=== PATIENT | female | born 1945 | race Caucasian/White ===

== ENCOUNTER 2019-01-27 18:04 | Emergency (ER) | payer MEDICARE ==
[~2019-01-27] VITALS: Ht 152.4 cm; Wt 77.1 kg
--- NOTE | 2019-01-27 18:04 | NUR ---
BIBRA W C/O BILAT ELBOW PAIN S/P FALL THIS MORNING. TO ER BED 3, HOOKED TO MONITOR, CHANGED TO GOWN, AWAITING MD LOWERY.
--- NOTE | 2019-01-27 18:15 | NUR ---
DR TAVAREZ AT BEDSIDE
[2019-01-27] MEDS ORDERED: ACETAMINOPHEN ES 500 MG TABLET ONE (18:22)
[2019-01-27] MEDS ORDERED: HYDR-4384 PO (18:25)
[2019-01-27] MEDS ORDERED: AMLO10TA7 PO (18:25)
[2019-01-27] MEDS ORDERED: CLON0.5T12 PO (18:25)
[2019-01-27] MEDS ORDERED: OXYB5TAB11 PO (18:25)
[2019-01-27] MEDS ORDERED: NAPR250T4 PO (18:25)
[2019-01-27] MEDS ORDERED: DONE10TA44 PO (18:25)
[2019-01-27] MEDS ORDERED: DIVA-78 PO (18:25)
[2019-01-27] MEDS ORDERED: CHLO50TA24 PO (18:25)
[2019-01-27] MEDS ORDERED: DOXE50CA4 PO (18:25)
[2019-01-27] MEDS ORDERED: DULO30CA2 PO (18:25)
[2019-01-27] MEDS ORDERED: GABA-532 PO (18:25)
[2019-01-27] MEDS ORDERED: BACL10TA PO (18:25)
[2019-01-27] MEDS ORDERED: predniSONE 20 MG TABLET PO ONE (18:30)
[2019-01-27] MEDS ORDERED: ALBUTEROL FS 2.5 MG/3 ML VIAL.NEB CONTNEB ONE (18:30)
[2019-01-27] MEDS ORDERED: ACETAMINOPHEN ES 500 MG TABLET PO ONE (18:30)
[2019-01-27] MEDS ORDERED: IPRATROPIUM NEB FS 0.5 MG/2.5 ML AMPUL.NEB NEB ONE (18:30)
[2019-01-27] MEDS ORDERED: predniSONE 20 MG TABLET ONE (18:40)
[2019-01-27] MEDS ORDERED: IPRATROPIUM NEB FS 0.5 MG/2.5 ML AMPUL.NEB ONE (18:48)
[2019-01-27] MEDS ORDERED: ALBUTEROL FS 2.5 MG/3 ML VIAL.NEB ONE (18:48)
--- NOTE | 2019-01-27 18:54 | NUR ---
PT WHEELED OUT FOR CT SCAN
--- NOTE | 2019-01-27 19:20 | NUR ---
PT COMFORTABLE IN BED, HOOKED TO MONITOR, VSS, ON BREATHING TREATMENT
--- NOTE | 2019-01-27 19:44 | NUR ---
REPORT GIVEN TO QING ROSS FOR DEJA
--- NOTE | 2019-01-27 20:53 | NUR ---
CALLED [facility] FOR TRANSPORT. ETA 30 MINS. #[phone]
[2019-01-27 21:30] VITALS: BP 116/61
== END 2019-01-27 21:53 | disposition home or self-care (01) ==
LOC: ER 18:12
DX: S20.222A Contusion of left back wall of thorax, initial encounter (principal); M25.512 Pain in left shoulder; G89.29 Other chronic pain; I10 Essential (primary) hypertension; F17.200 Nicotine dependence, unspecified, uncomplicated; I65.23 Occlusion and stenosis of bilateral carotid arteries; R06.2 Wheezing; Z88.0 Allergy status to penicillin; Z86.73 Personal history of transient ischemic attack (TIA), and cerebral infarction without residual deficits; Z95.5 Presence of coronary angioplasty implant and graft; W18.2XXA Fall in (into) shower or empty bathtub, initial encounter; Y93.89 Activity, other specified; Y92.002 Bathroom of unspecified non-institutional (private) residence as the place of occurrence of the external cause; Y99.8 Other external cause status
CPT/HCPCS: 70450; 71045; 73030; 73060 ×2; 93005 ×2; 94640 ×2; 99284; 99406; A4606; J7512

== ENCOUNTER 2019-03-03 18:08 | Emergency (ER) | payer MEDICARE ==
[~2019-03-03] VITALS: Ht 170.2 cm; Wt 79.6 kg
[~2019-03-03 18:08] MED LIST: AMLO10TA7 PO; BACL10TA PO; CHLO50TA24 PO; CLON0.5T12 PO; DIVA-78 PO; DONE10TA44 PO; DOXE50CA4 PO; DULO30CA2 PO; GABA-532 PO; HYDR-4384 PO; NAPR250T4 PO; OXYB5TAB11 PO
--- NOTE | 2019-03-03 18:27 | NUR ---
MARJORIE FROM [facility] C/O GLF TRIP AND FALL TOWARDS ELEVATOR -KO, -TRAUMA. FALL WAS WITNESSED, PT DOES NOT RECALL FALLING. HAS SOME BRUISING ON RIGHT SHOULDER, OTHERWISE SKIN INTACT. DENIES PAIN. NO ACUTE DISTRESS NOTED. READY FOR EVAL.
--- NOTE | 2019-03-03 18:54 | NUR ---
PT TAKEN TO RADIOLOGY VIA HERMILO
--- NOTE | 2019-03-03 18:54 | NUR ---
Luis F thompson in [facility] - 03/03/19 at 1900 by JUSTEN PT TAKEN TO CT VIA HERMILO
[2019-03-03] MEDS ORDERED: ALBUTEROL FS 2.5 MG/3 ML VIAL.NEB NEB ONE (19:00)
[2019-03-03] MEDS ORDERED: IPRATROPIUM NEB FS 0.5 MG/2.5 ML AMPUL.NEB NEB ONE (19:00)
[2019-03-03] MEDS ORDERED: ALBUTEROL FS 2.5 MG/3 ML VIAL.NEB ONE (19:19)
[2019-03-03] MEDS ORDERED: IPRATROPIUM NEB FS 0.5 MG/2.5 ML AMPUL.NEB ONE (19:19)
--- NOTE | 2019-03-03 20:06 | NUR ---
PT ASLEEP IN BED, VSS. EASILY AROUSES
[2019-03-03] MEDS ORDERED: DEXAMETHASONE SOD PHOSPHATE 4 MG/ML VIAL IM ONE (21:00)
[2019-03-03] MEDS ORDERED: DEXAMETHASONE SOD PHOSPHATE 10 MG/ML VIAL ONE (21:47)
--- NOTE | 2019-03-03 22:09 | NUR ---
PT MADE COMFORTABLE, GIVEN JUICE. NO COMPLAINTS AT THIS TIME.
--- NOTE | 2019-03-03 22:12 | NUR ---
HALINA HUNTER [id number] TRIP #[id number]
--- NOTE | 2019-03-03 23:28 | NUR ---
ENDORSED TO ELECTROLYSIS NEEDLE OPERATOR FOR DEJA
[2019-03-04 01:17] VITALS: BP 122/71
== END 2019-03-04 01:17 | disposition home or self-care (01) ==
LOC: ER 18:11
DX: J44.9 Chronic obstructive pulmonary disease, unspecified (principal); M70.22 Olecranon bursitis, left elbow; G89.29 Other chronic pain; M54.5 Low back pain; I10 Essential (primary) hypertension; F17.200 Nicotine dependence, unspecified, uncomplicated; Z86.73 Personal history of transient ischemic attack (TIA), and cerebral infarction without residual deficits; Z88.0 Allergy status to penicillin; Z79.899 Other long term (current) drug therapy; W01.0XXA Fall on same level from slipping, tripping and stumbling without subsequent striking against object, initial encounter; Y93.01 Activity, walking, marching and hiking; Y92.89 Other specified places as the place of occurrence of the external cause; Y99.8 Other external cause status
CPT/HCPCS: 72100; 72190; 73080; 94640; 96372; 99283; J1100

== ENCOUNTER 2019-04-26 23:28 | Inpatient (IN) | payer MEDICARE ==
[~2019-04-26] VITALS: Ht 149.9 cm; Wt 76.7 kg
--- NOTE | 2019-04-26 23:44 | NUR ---
PT BIBPA FROM [facility] KARLA HOFFMAN C/O LEFT SIDED WEAKNESS, PT TO BED 8, PT ON MONITOR, VSS, NAD NOTED, PENDING MD LOWERY
--- NOTE | 2019-04-26 23:51 | NUR ---
CODE STROKE CALLED
[2019-04-27 00:02] LABS: BASOPHILS % (AUTO) 0.6 % (0.0-2.0); EOSINOPHILS % (AUTO) 4.2 % (0.0-6.0); HEMATOCRIT 38 % (33-45); LYMPHOCYTES # (AUTO) 0.9 /CMM (0.8-4.8); LYMPHOCYTES % (AUTO) 15.2 % (20.0-44.0); MEAN CORPUSCULAR HGB CONC 34 g/dl (31.0-36.0); MEAN CORPUSCULAR VOLUME 101 fL (82-100); MONOCYTES # (AUTO) 0.6 /CMM (0.1-1.30); MONOCYTES % (AUTO) 10.1 % (2.0-12.0); NEUTROPHILS # (AUTO) 4.3 /CMM (1.8-8.9); NEUTROPHILS % (AUTO) 69.9 % (43.0-81.0); PLATELET COUNT (AUTO) 128 /CMM (150-450); RED BLOOD CELL COUNT(AUTO) 3.78 MIL/uL (4.0-5.2); WHITE BLOOD COUNT (AUTO) 6.1 K/uL (4.3-11.0)
[2019-04-27 00:10] LABS: CALCIUM, SERUM 8.5 mg/dL (8.5-10.1); CARBON DIOXIDE 31 mmol/L (21-32); CHLORIDE 106 mmol/L (98-107); CREATININE 0.8 mg/dL (0.6-1.3); GLUCOSE 96 mg/dL (74-106); POTASSIUM 4.2 mmol/L (3.5-5.1); SODIUM SERUM 141 mmol/L (136-145); UREA NITROGEN, BLOOD 31 mg/dL (7-18)
[2019-04-27 00:16] LABS: CHOLESTEROL 116 mg/dL (<200); HDL CHOLESTEROL 48 mg/dL (40-60); LDL 56 mg/dL (0-99); TRIGLYCERIDES 71 mg/dL (30-150)
[2019-04-27 00:19] LABS: ALCOHOL, BLOOD < 3 mg/dL (0-0)
[2019-04-27 00:20] LABS: VALPROIC ACID 42 ug/mL (50-100)
[2019-04-27] MEDS ORDERED: IOHEXOL-350 100 ML VIAL IV ONE (00:29)
[2019-04-27] MEDS ORDERED: IV NS 0.9% 250 ML IV ONE (00:29)
[2019-04-27] MEDS ORDERED: CT SWABBABLE VALVE TRANS SET 1 EA INFUS.SET MC ONE (00:29)
--- NOTE | 2019-04-27 01:09 | NUR ---
SPOKE TO SHAYLEE AT TELESTROKE HOTLINE; HE WILL FWD TO TELESTROKE NEUROLOGIST REGARDING RESULTS OF CTA.
[2019-04-27] MEDS ORDERED: AMMONIA NASAL INHALATION 1 EA PACK NAS ONE (01:49)
[2019-04-27 02:13] LABS: APPEARANCE,URINE Clear (CLEAR); BILIRUBIN,URINE Negative (NEGATIVE); BLOOD, URINE Negative Ery/uL (NEGATIVE); COLOR,URINE Yellow (YELLOW); KETONES,URINE Negative (NEGATIVE); LEUKOCYTE ESTERASE ,URINE Negative (NEGATIVE); NITRITE, URINE Negative (NEGATIVE); PROTEIN,URINE Negative (NEGATIVE); UGLUCOSE Negative (NEGATIVE); UROBILINOGEN,URINE 0.2 EU/dL (0.2)
[2019-04-27] MEDS ORDERED: HYDROCODONE/APAP 5/325MG 1 EACH TABLET PO PRN (02:30)
[2019-04-27] MEDS ORDERED: MAGNESIUM HYDROXIDE 30 ML UDC PO PRN (02:30)
[2019-04-27] MEDS ORDERED: ACETAMINOPHEN 325 MG TABLET PO PRN (02:30)
[2019-04-27] MEDS ORDERED: ONDANSETRON HCL/PF 4 MG/2 ML VIAL IVP PRN (02:30)
[2019-04-27] MEDS ORDERED: ZOLPIDEM TARTRATE 5 MG TABLET PO PRN (02:30)
[2019-04-27] MEDS ORDERED: Z GUARD REMEDY 2 OZ OINT TP PRN (02:30)
[2019-04-27] MEDS ORDERED: MAG HYDROX/AL HYDROX/SIMETH 30 ML UDC PO PRN (02:30)
[2019-04-27 02:50] VITALS: BP 126/55
--- NOTE | 2019-04-27 03:00 | NUR ---
REPORT GIVEN TO RACHEL ROSS FOR DEJA; PT WILL BE TRANSPORTED TO 3RD FLOOR VIA ACLS PROTOCOL
[2019-04-27 04:48] VITALS: BP 126/55
[2019-04-27] MEDS: IV NS 0.9% 1,000 ML IV SCH ×3 (06:15→22:30)
--- NOTE | 2019-04-27 07:20 | NUR ---
Nurse Notes: report from the night nursr Hilda Brizuela RN. Patient is resting in bed. No complaints of pain, in no respiratory distress, skin is intact
[2019-04-27 07:46] LABS: BASOPHILS % (AUTO) 0.3 % (0.0-2.0); EOSINOPHILS % (AUTO) 4.4 % (0.0-6.0); HEMATOCRIT 41 % (33-45); HEMOGLOBIN 13.9 g/dL (11.5-14.8); LYMPHOCYTES # (AUTO) 0.6 /CMM (0.8-4.8); LYMPHOCYTES % (AUTO) 11.2 % (20.0-44.0); MEAN CORPUSCULAR HGB CONC 34 g/dl (31.0-36.0); MEAN CORPUSCULAR VOLUME 100 fL (82-100); MONOCYTES # (AUTO) 0.5 /CMM (0.1-1.30); MONOCYTES % (AUTO) 10.1 % (2.0-12.0); NEUTROPHILS # (AUTO) 3.8 /CMM (1.8-8.9); PLATELET COUNT (AUTO) 122 /CMM (150-450); RED BLOOD CELL COUNT(AUTO) 4.05 MIL/uL (4.0-5.2); WHITE BLOOD COUNT (AUTO) 5.1 K/uL (4.3-11.0)
[2019-04-27 08:00] VITALS: BP 133/69
[2019-04-27 08:05] LABS: CALCIUM, SERUM 8.7 mg/dL (8.5-10.1); CARBON DIOXIDE 27 mmol/L (21-32); CHLORIDE 107 mmol/L (98-107); CREATININE 0.5 mg/dL (0.6-1.3); GLUCOSE 97 mg/dL (74-106); MAGNESIUM 1.9 mg/dL (1.8-2.4); PHOSPHORUS 3.4 mg/dL (2.5-4.9); POTASSIUM 3.6 mmol/L (3.5-5.1); SODIUM SERUM 142 mmol/L (136-145); UREA NITROGEN, BLOOD 18 mg/dL (7-18)
[2019-04-27 08:17] LABS: CHOLESTEROL 121 mg/dL (<200); HDL CHOLESTEROL 49 mg/dL (40-60); LDL 60 mg/dL (0-99); TRIGLYCERIDES 75 mg/dL (30-150)
[2019-04-27] MEDS: GABAPENTIN 100 MG CAPSULE PO SCH ×3 (11:28→21:07)
[2019-04-27] MEDS: DIVALPROEX SODIUM 500 MG TABLET.DR PO SCH ×2 (11:28→18:05)
[2019-04-27] MEDS: DULOXETINE HCL 30 MG CAPSULE.DR PO SCH (11:28)
[2019-04-27] MEDS: OXYBUTYNIN CHLORIDE 5 MG TABLET PO SCH ×2 (11:28→18:04)
[2019-04-27] MEDS: AMLODIPINE BESYLATE 10 MG TABLET PO SCH (11:29)
[2019-04-27] MEDS: chlorproMAZINE HCL 25 MG TABLET PO SCH ×2 (11:29→18:04)
[2019-04-27] MEDS: BACLOFEN (10 MG) 10 MG TABLET PO SCH ×2 (11:29→18:04)
[2019-04-27] MEDS: NAPROXEN 250 MG TABLET PO SCH ×2 (11:34→18:04)
--- NOTE | 2019-04-27 14:30 | NUR ---
Nurse Notes: patient is incontinent of urine 3-4 x. Patient does not call nurse when needs to use bedpan, diaper is intact. changed by STOCK SELECTOR.
--- NOTE | 2019-04-27 15:18 | NUR ---
Nurse Notes: patient to MRI brain via wheelchair. patient is able to stand and walk few steps to w/c. questionaire completed, history left elbow fracture, patient stated there is plastic. No request for pain medications
[2019-04-27 16:00] VITALS: BP 130/73
--- NOTE | 2019-04-27 19:00 | NUR ---
Patient resides at [facility] [phone]. She requires assistance with adl's. Has walker as needed. D/C plan is back to [place], will discuss with . Addendum: 04/27/19 at 1902 by KALPANA BRYAN RN Amended: Links added.
--- NOTE | 2019-04-27 19:08 | NUR ---
RN MS OPENING NOTES RECEIVED PATIENT IN BED AWAKE ALERT AND ORIENTED X2-3, ABLE TO MAKE SIMPLE NEEDS KNOWN SUCH RESTROOM NEEDS. 0N 2 L VIA NC, RESPIRATIONS EVEN AND UNLABORED WITH EQUAL RISE AND FALL OF CHEST, DENIES ANY PAIN OR DISCOMFORT, IV SITE TO RIGHT FA #18 G INTACT AND PATENT, NO REDNESS, NO INFILTRATION PRESENT, FLUIDS OFFERED, REPOSITIONING OFFERED AND ENCOURAGED, ORIENTED TO STAFF AND CALL LIGHT AND KEPT WITHIN REACH, SAFETY PRECAUTIONS IN PLACE, LOW BED AND LOCKED, ALL NEEDS ATTENDED AT THIS TIME, WILL CONTINUE TO MONITOR AND ADDRESS NEEDS, REMAINS COMFORTABLE AT THIS TIME.
--- NOTE | 2019-04-27 19:10 | NUR ---
SHIFT REPORT: report given to Ada ROSS, patient is resting in bed. Normal Saline @ 100 cc per hour. No request for pain medications. Incontinent of urine, patient was changed at 1850 by SPECIAL FORCES WEAPONS SERGEANT. patient wants the IV fluids stopped, making her urinate a lot. In no respiratory distress.
[2019-04-27 20:00] VITALS: BP 130/52
--- NOTE | 2019-04-27 21:26 | NUR ---
Met with patient, she is alert and pleasant.States she resides at [facility] [phone]. She ambulates with a walker and requires min assist with adl's. States she has a boyfriend that resides at [facility] also. Her pcp is Dr. Aleman. Patient want to return to the [facility] when discharge. Addendum: 04/27/19 at 2126 by KALPANA BRYAN RN Amended: Links added.
[2019-04-27] MEDS ORDERED: DONEPEZIL 5 MG TABLET PO SCH (22:00)
--- NOTE | 2019-04-27 23:39 | NUR ---
RN MS NOTES NEW IVF BAG IN PLACE, HAS BEEN RUNNING FOR 5 HOURS ONLY, IVF BAG FULL CURRENTLY RUNNING ORDERED, WILL CHANGE WHEN EMPTY.
[2019-04-28] MEDS: IV NS 0.9% 1,000 ML IV SCH (04:19)
--- NOTE | 2019-04-28 04:20 | NUR ---
RN MS NOTES PREVIOUS IVF BAG COMPLETE INFUSED FOR 10 HOURS ORDERED, NEW IVF BAG HUNG AT THIS TIME.
--- NOTE | 2019-04-28 06:53 | NUR ---
RN MS CLOSING NOTES PATIENT IN BED AWAKE ALERT AND ORIENTED X2-3, ABLE TO MAKE SIMPLE NEEDS KNOWN SUCH RESTROOM NEEDS. 0N 2 L VIA NC, RESPIRATIONS EVEN AND UNLABORED WITH EQUAL RISE AND FALL OF CHEST, DENIES ANY PAIN OR DISCOMFORT, IV SITE TO RIGHT FA #18 G INTACT AND PATENT, NO REDNESS, NO INFILTRATION PRESENT, FLUIDS OFFERED,IVF RUNNING ORDERED, REPOSITIONING OFFERED AND ENCOURAGED, CALL LIGHT KEPT WITHIN REACH, SAFETY PRECAUTIONS IN PLACE, LOW BED AND LOCKED, ALL NEEDS ATTENDED THROUGHOUT SHIFT, WILL CONTINUE TO MONITOR AND ADDRESS NEEDS AND ENDORSE TO NEXT SHIFT, WOUND CARE CONSULT IN PLACE, FOR ASSESSMENT OF LEFT BUTTOCKS SCAR LIKE SITE. GENTLE PERINEAL CARE PROVIDED THROUGHOUT SHIFT. REMAINS COMFORTABLE. BED ALARM IN PLACE.
--- NOTE | 2019-04-28 07:30 | NUR ---
MS RN OPENING NOTES RECEIVED PT IN BED ASLEEP, EASILY AROUSED, A/O X2-3. ON SUPPLEMENTAL OXYGEN AT 2LPM VIA NC, WITH NO ACUTE RESPIRATORY DISTRESS. PT DENIES PAIN AT THIS MOMENT. PT DENIES ANY CONCERNS AND QUESTIONS AT THIS TIME. PT STATED SHE WANTED TO GO HOME TODAY. IVF NS AT 100ML/HR TO RFA G18, INTACT AND FLUID INFUSING WELL. PT KEPT COMFORTABLE IN BED. PT'S BED IN LOWEST, LOCKED POSITION, WITH SR X3. WILL CONTINUE PLAN OF CARE.
[2019-04-28] MEDS: GABAPENTIN 100 MG CAPSULE PO SCH ×3 (08:31→16:21)
[2019-04-28] MEDS: BACLOFEN (10 MG) 10 MG TABLET PO SCH ×2 (08:31→16:21)
[2019-04-28] MEDS: NAPROXEN 250 MG TABLET PO SCH ×2 (08:31→16:20)
[2019-04-28] MEDS: DIVALPROEX SODIUM 500 MG TABLET.DR PO SCH ×2 (08:31→16:21)
[2019-04-28] MEDS: OXYBUTYNIN CHLORIDE 5 MG TABLET PO SCH ×2 (08:31→16:21)
[2019-04-28] MEDS: DULOXETINE HCL 30 MG CAPSULE.DR PO SCH (08:31)
[2019-04-28] MEDS: AMLODIPINE BESYLATE 10 MG TABLET PO SCH (08:32)
[2019-04-28] MEDS: chlorproMAZINE HCL 25 MG TABLET PO SCH ×2 (08:41→16:21)
--- NOTE | 2019-04-28 10:28 | NUR ---
WOUND CARE CONSULT: PT PRESENTS WITH INCONTINENCE AND RAISED SCAR TO LEFT BUTTOCK, PRESENT ON ADMISSION. SCAR IS NONTENDER. RECOMMENDATIONS MADE FOR SKIN PROTECTION AND DISCUSSED WITH NURSING STAFF. PT ABLE TO ASSIST WITH TURNING AND REPOSITIONING IN BED. WILL SEE PRN. VENCES IN AGREEMENT WITH PLAN OF CARE. Addendum: 04/28/19 at 1029 by DENISSE HOFF WNDNU Amended: Links added.
[2019-04-28 11:20] VITALS: BP 151/71
[2019-04-28 15:58] VITALS: BP 130/63
--- NOTE | 2019-04-28 18:50 | NUR ---
MS FURNITURE FINISHER APPRENTICE NOTES PT TO DISCHARGE BACK TO [facility]. PT A/O X2-3. ON SUPPLEMENTAL OXYGEN AT 2LPM VIA NC, WITH NO ACUTE RESPIRATORY DISTRESS NOTED. PT DENIES PAIN OR ANY DISCOMFORT. PIV TO RFA REMOVED, APPLIED DRY DRESSING. PICTURE NOT TAKEN, NIGHT NURSE TOOK PICTURE THIS MORNING AT 5AM, PT SEEN BY WOUND NURSE, JUST TO APPLY BARRIER CREAM NO MEPILEX. NO OTHER SKIN ISSUE NOTED. ALL NEEDS AND CARE ATTENDED. PT UNABLE TO SIGN DISCHARGE INSTRUCTIONS AND INVENTORY LIST; COSIGNED WITH ANOTHER NURSE/DESK OPERATOR/HIPOLITO. PRESCRIPTION GIVEN TO PT INSIDE THE DISCHARGE PACKET. 2 PLANT AND EQUIPMENT WORKER CAME, PT TRANSPORTED VIA [employer]. VS STABLE. ROHITH NOTIFIED BRIM STITCHER OF THE ASSISTED LIVING FOR DISCHARGE. NO REPORT GIVEN TO ANY NURSE PER ROHITH, NO NEED. PT LEFT THE UNIT AT 1845. BERNABE/PORTIA AND MANAGER RESOURCE/AP AWARE OF PT'S DISCHARGE. Addendum: 04/28/19 at 1913 by CONRAD KING RN HOSPITALIST IS DR DAVIES. NOT MANAGER RESOURCE/AP. DR DAVIES AWARE OF DISCHARGE AND TRANSFER BACK TO [facility].
== END 2019-04-28 18:48 | DRG 640 ==
LOC: ER 23:32 → TELE 04-27 02:23 → MED 04-27 09:12
PROVIDERS: ADMIT Nurse Practitioner Acute Care; ATTEND Legal Medicine
DX: E86.0 Dehydration (principal); G93.41 Metabolic encephalopathy; N17.9 Acute kidney failure, unspecified; I10 Essential (primary) hypertension; J44.9 Chronic obstructive pulmonary disease, unspecified; Z86.73 Personal history of transient ischemic attack (TIA), and cerebral infarction without residual deficits; F03.90 Unspecified dementia, unspecified severity, without behavioral disturbance, psychotic disturbance, mood disturbance, and anxiety; Z88.0 Allergy status to penicillin; G89.4 Chronic pain syndrome; R40.2142 Coma scale, eyes open, spontaneous, at arrival to emergency department; R40.2252 Coma scale, best verbal response, oriented, at arrival to emergency department; R40.2362 Coma scale, best motor response, obeys commands, at arrival to emergency department
CPT/HCPCS: 36415; 70450-TC; 70496-TC; 70498-TC; 70551-TC; 71045-TC; 80048-TC; 80061-TC; 80164-TC; 80305; 81000-TC; 82962-TC; 83735-TC; 84100-TC; 84484-TC; 85025-TC; 85730-TC; 87081-TC; 92521; 92526; 94799-TC; G0378; G0480; J7030; J7050; Q0161; Q9967

== ENCOUNTER 2019-06-15 14:25 | Emergency (ER) | payer MEDICARE ==
[~2019-06-15] VITALS: Ht 167.6 cm; Wt 71.7 kg
--- NOTE | 2019-06-15 14:43 | NUR ---
MILAN HOFFMAN FOR BACK PAIN EVAL. -RECENT TRAUMA. PT ALSO C/O VAGINAL AREA ITCHING NEWSPAPER PEDDLER. UPON ASSESSMENT, PT DENIES BACK PAIN, BUT C/O VAGINAL PAIN. HAS DIFFICULTY SITTING FOR LONG PERIODS. NO OTHER COMPLAINTS AT THIS TIME. AOX4, AMB, VSS, RR EVEN AND UNLABORED, SOME WHEEZING BILATERALLY. READY FOR EVAL.
[2019-06-15] MEDS ORDERED: IPRATROPIUM NEB FS 0.5 MG/2.5 ML AMPUL.NEB ONE (14:45)
[2019-06-15] MEDS ORDERED: ALBUTEROL FS 2.5 MG/3 ML VIAL.NEB ONE (14:45)
[2019-06-15] MEDS ORDERED: methylPREDNISolone SOD SUCC 125 MG/2ML VIAL ONE (14:51)
[2019-06-15] MEDS ORDERED: methylPREDNISolone SOD SUCC 125 MG/2ML VIAL IV ONE (15:00)
[2019-06-15] MEDS ORDERED: ALBUTEROL FS 2.5 MG/3 ML VIAL.NEB CONTNEB ONE (15:00)
[2019-06-15] MEDS ORDERED: IPRATROPIUM NEB FS 0.5 MG/2.5 ML AMPUL.NEB NEB ONE (15:00)
--- NOTE | 2019-06-15 16:20 | NUR ---
ASSISTED DR PINEDA AT BEDSIDE FOR UNDERGROUND TRUCK OPERATOR EXAM
--- NOTE | 2019-06-15 16:35 | NUR ---
URINE COLLECTED VIA STRAIGHT CATH PER ORDER AND PROTOCOL, SENT TO STAT LAB
[2019-06-15 16:45] LABS: APPEARANCE,URINE Clear (CLEAR); BILIRUBIN,URINE Negative (NEGATIVE); BLOOD, URINE Negative Ery/uL (NEGATIVE); COLOR,URINE Yellow (YELLOW); KETONES,URINE Negative (NEGATIVE); LEUKOCYTE ESTERASE ,URINE Trace (NEGATIVE); NITRITE, URINE Positive (NEGATIVE); PROTEIN,URINE Negative (NEGATIVE); UGLUCOSE Negative (NEGATIVE); UROBILINOGEN,URINE 0.2 EU/dL (0.2)
--- NOTE | 2019-06-15 16:56 | NUR ---
PT PULLED OUT IV, LETTING IT DRIP ON THE FLOOR. MD NOTIFIED Addendum: 06/15/19 at 1826 by VIRGENUWPETE PRESSURE APPLIED AND TAPED WITH 4X4
[2019-06-15 17:07] LABS: BACTERIA,URINE 2+ /HPF (None Seen); RBC,URINE NONE SEEN /HPF (0-2); SQUAMOUS EPITHELIAL CELL,UR Few /HPF (None Seen)
--- NOTE | 2019-06-15 17:33 | NUR ---
CALLED [facility] FOR BLS TRANSPORT, ETA OF 45 MINS.
--- NOTE | 2019-06-15 18:00 | NUR ---
REPORT GIVEN TO KARLA HOFFMAN FOR DEJA
--- NOTE | 2019-06-15 18:25 | NUR ---
REPORT GIVEN TO [facility] UNIT 28 FOR TRANSPORT. Patient discharged to home in stable condition. Written and verbal after care instructions given. Patient verbalizes understanding of instruction.
[2019-06-15 18:29] VITALS: BP 114/72
== END 2019-06-15 18:20 | disposition home or self-care (01) ==
LOC: ER 14:25
DX: N39.0 Urinary tract infection, site not specified (principal); K64.4 Residual hemorrhoidal skin tags; J44.9 Chronic obstructive pulmonary disease, unspecified; G89.4 Chronic pain syndrome; F03.90 Unspecified dementia, unspecified severity, without behavioral disturbance, psychotic disturbance, mood disturbance, and anxiety; F17.210 Nicotine dependence, cigarettes, uncomplicated; Z86.73 Personal history of transient ischemic attack (TIA), and cerebral infarction without residual deficits; Z88.0 Allergy status to penicillin; Z79.899 Other long term (current) drug therapy
CPT/HCPCS: 71045; 81001; 87077; 87086; 87186; 94644; 96374; 99285; 99406; J2930; 81000-TC

== ENCOUNTER 2019-07-05 16:32 | Inpatient (IN) | payer MEDICARE, OTHER ==
[~2019-07-05] VITALS: Ht 154.9 cm; Wt 71.2 kg
[2019-07-05] MEDS ORDERED: IV NS 0.9% 500 ML BAG IV ONE (17:00)
[2019-07-05] MEDS ORDERED: ONDANSETRON HCL/PF 4 MG/2 ML VIAL IV ONE (17:00)
[2019-07-05] MEDS ORDERED: MORPHINE SULFATE INJ 2 MG/ML DISP.SYRIN IV ONE (17:00)
--- NOTE | 2019-07-05 17:00 | NUR ---
patient came in due to Altered than usual, 02 desat. On 02 @ 2lpm via NC, 02 sat 93%. Breathing evenly and unlabored. connected to the monitor and pulse ox. Kept comfortable, will continue to monitor accordingly.
[2019-07-05 17:23] LABS: BASOPHILS % (AUTO) 1.1 % (0.0-2.0); EOSINOPHILS % (AUTO) 4.8 % (0.0-6.0); HEMATOCRIT 39 % (33-45); HEMOGLOBIN 13.2 g/dL (11.5-14.8); LYMPHOCYTES % (AUTO) 23.4 % (20.0-44.0); MEAN CORPUSCULAR HGB CONC 34 g/dl (31.0-36.0); MEAN CORPUSCULAR VOLUME 103 fL (82-100); MONOCYTES # (AUTO) 0.4 /CMM (0.1-1.30); MONOCYTES % (AUTO) 10.7 % (2.0-12.0); NEUTROPHILS # (AUTO) 2.5 /CMM (1.8-8.9); PLATELET COUNT (AUTO) 150 /CMM (150-450); RED BLOOD CELL COUNT(AUTO) 3.79 MIL/uL (4.0-5.2); WHITE BLOOD COUNT (AUTO) 4.2 K/uL (4.3-11.0)
[2019-07-05] MEDS ORDERED: ONDANSETRON HCL/PF 4 MG/2 ML VIAL ONE (17:23)
[2019-07-05] MEDS ORDERED: MORPHINE SULFATE INJ 2 MG/ML DISP.SYRIN ONE (17:24)
[2019-07-05 17:37] LABS: CALCIUM, SERUM 8.7 mg/dL (8.5-10.1); CARBON DIOXIDE 30 mmol/L (21-32); CHLORIDE 105 mmol/L (98-107); CREATININE 1.1 mg/dL (0.6-1.3); GLUCOSE 98 mg/dL (74-106); SODIUM SERUM 139 mmol/L (136-145); UREA NITROGEN, BLOOD 30 mg/dL (7-18)
[2019-07-05] MEDS ORDERED: ATOR20TA PO (18:39)
--- NOTE | 2019-07-05 19:15 | NUR ---
Luis F thompson in [facility] - 07/05/19 at 1918 by SHAQ 11-2 TELE HYPOXIA ,BAHADORI
--- NOTE | 2019-07-05 19:18 | NUR ---
111-2 TELE [facility], [facility]
[2019-07-05 20:00] VITALS: BP 113/56
--- NOTE | 2019-07-05 20:08 | NUR ---
REPORT GIVEN TO CODY MARIEE FOR DEJA.
--- NOTE | 2019-07-05 20:15 | NUR ---
CLAY RN NOTES RECEIVED PATIENT REPORT FROM PROBATE CLERK RODRIGO. RECEIVED PATIENT ON [facility]. PATIENT IS A/A/OX3, ON 2L O2 VIA NC WITH SPO2 OF 94%. NO SOB NO DISTRESS NOTED AT THIS TIME. NO COMPLAINT OF PAIN. RIGHT FOREARM G18 IV LINE IS PATIENT AND INTACT. HOB ELEVATED. SKIN ASSESSMENT IS DONE. ALL SAFETY MEASURES ARE IN PLACE, BED IS LOW AND LOCKED POSITION, CALL LIGHT IN REACH. WILL CONTINUE TO MONITOR PATIENT CLOSELY.
--- NOTE | 2019-07-05 20:21 | NUR ---
PT TRANSPORTED TO UNIT WITH RN AND EMT AT BEDSIDE W/ ACLS PROTOCOL. NAD NOTED DURING TRANPORT. PT TO 116-2.
--- NOTE | 2019-07-05 20:55 | NUR ---
[address] DAVIES AND CLARIFIED ADMISSION ORDERS FOR MORPHINE SULFATE AND ROCEPHIN IV. PER DR. DAVIES OK TO GIVE ROCEPHIN ORDERED.
[2019-07-05 21:00] VITALS: BP 113/56
[2019-07-05] MEDS ORDERED: IPRATROPIUM NEB FS 0.5 MG/2.5 ML AMPUL.NEB NEB PRN (21:00)
[2019-07-05] MEDS ORDERED: MORPHINE SULFATE INJ 2 MG/ML DISP.SYRIN IV PRN (21:00)
[2019-07-05] MEDS ORDERED: ALBUTEROL FS 2.5 MG/0.5 ML VIAL.NEB NEB PRN (21:00)
[2019-07-05] MEDS: IPRATROPIUM NEB FS 0.5 MG/2.5 ML AMPUL.NEB NEB SCH (21:40)
[2019-07-05] MEDS: ALBUTEROL FS 2.5 MG/0.5 ML VIAL.NEB NEB SCH (21:40)
[2019-07-05] MEDS ORDERED: CEFTRIAXONE 1 G VIAL ONE (21:43)
[2019-07-05] MEDS: CEFTRIAXONE 1 G in IV D5W 50 ML IV SCH (22:14)
[2019-07-05] MEDS: ENOXAPARIN SODIUM 40 MG/0.4 ML DISP.SYRIN SQ SCH (22:15)
[2019-07-05] MEDS: methylPREDNISolone SOD SUCC 40 MG/ML VIAL IV SCH (22:15)
[2019-07-05] MEDS: clonazePAM 0.5 MG TABLET PO SCH (22:16)
[2019-07-06] VITALS: BP 118/60
[2019-07-06 05:00] VITALS: BP 122/63
[2019-07-06] MEDS: methylPREDNISolone SOD SUCC 40 MG/ML VIAL IV SCH ×3 (05:23→20:52)
[2019-07-06 07:14] LABS: CALCIUM, SERUM 8.4 mg/dL (8.5-10.1); CARBON DIOXIDE 30 mmol/L (21-32); CHLORIDE 104 mmol/L (98-107); CREATININE 0.7 mg/dL (0.6-1.3); GLUCOSE 142 mg/dL (74-106); POTASSIUM 4.6 mmol/L (3.5-5.1); SODIUM SERUM 140 mmol/L (136-145); UREA NITROGEN, BLOOD 20 mg/dL (7-18)
[2019-07-06 07:20] LABS: BASOPHILS % (AUTO) 0.4 % (0.0-2.0); EOSINOPHILS % (AUTO) 0.2 % (0.0-6.0); HEMATOCRIT 42 % (33-45); HEMOGLOBIN 14.2 g/dL (11.5-14.8); LYMPHOCYTES # (AUTO) 0.4 /CMM (0.8-4.8); LYMPHOCYTES % (AUTO) 11.2 % (20.0-44.0); MEAN CORPUSCULAR HGB CONC 34 g/dl (31.0-36.0); MEAN CORPUSCULAR VOLUME 100 fL (82-100); MONOCYTES % (AUTO) 1.3 % (2.0-12.0); NEUTROPHILS # (AUTO) 3.2 /CMM (1.8-8.9); NEUTROPHILS % (AUTO) 86.9 % (43.0-81.0); PLATELET COUNT (AUTO) 132 /CMM (150-450); RED BLOOD CELL COUNT(AUTO) 4.15 MIL/uL (4.0-5.2); WHITE BLOOD COUNT (AUTO) 3.7 K/uL (4.3-11.0)
--- NOTE | 2019-07-06 07:20 | NUR ---
RN OPENING NOTES PT IS AWAKE AND STATES THAT SHE IS FEELING FINE. DENIES ANY SOB OR PAIN AT PRESENT MOMENT. PT IS LAYING IN BED WITH CALL LIGHT IN REACH. PT IS A&OX4. REPORT RECEIVED FROM SUPERVISING FLOORPERSON RN. WILL CONTINUE TO MONITOR. BED IS LOCKED AND IN LOWEST POSITION WITH CALL LIGHT IN REACH.
[2019-07-06] MEDS: IPRATROPIUM NEB FS 0.5 MG/2.5 ML AMPUL.NEB NEB SCH ×3 (07:35→20:16)
[2019-07-06] MEDS: ALBUTEROL FS 2.5 MG/0.5 ML VIAL.NEB NEB SCH ×3 (07:35→20:17)
--- NOTE | 2019-07-06 07:48 | NUR ---
RN CLOSING NOTES PATIENT IS RESTING IN BED, A/A/OX3, ON 2L O2 VIA NC WITH SPO2 OF 95%. NO SOB NO DISTRESS NOTED AT THIS TIME AND THROUGHOUT THE SHIFT, NO COMPLAINT OF PAIN. RIGHT FOREARM G18 IV LINE IS PATIENT AND INTACT. HOB ELEVATED. ALL SAFETY MEASURES ARE IN PLACE, BED IS LOW AND LOCKED POSITION, CALL LIGHT IN REACH. WILL ENDORSE PATIENT CARE TO AM RN FOR CONT. OF CARE.
[2019-07-06 08:00] VITALS: BP 126/72
[2019-07-06] MEDS: GABAPENTIN 100 MG CAPSULE PO SCH ×3 (08:08→16:46)
[2019-07-06] MEDS: PANTOPRAZOLE 40 MG TABLET.DR PO SCH (08:08)
[2019-07-06] MEDS: AMLODIPINE BESYLATE 10 MG TABLET PO SCH (08:08)
[2019-07-06] MEDS: clonazePAM 0.5 MG TABLET PO SCH ×2 (08:09→20:52)
[2019-07-06] MEDS: BACLOFEN (10 MG) 10 MG TABLET PO SCH ×2 (08:09→16:45)
[2019-07-06] MEDS: DIVALPROEX SODIUM 500 MG TABLET.DR PO SCH ×2 (08:09→16:47)
[2019-07-06] MEDS: HYDROCODONE/APAP 5/325MG 1 EACH TABLET PO SCH ×3 (08:09→16:58)
[2019-07-06] MEDS: NAPROXEN 250 MG TABLET PO SCH ×2 (08:09→16:46)
[2019-07-06] MEDS: DULOXETINE HCL 30 MG CAPSULE.DR PO SCH (08:09)
--- NOTE | 2019-07-06 13:30 | NUR ---
RN NOTE PT PULLED OUT IV AND STATED SHE NEEDS TO POOP. CHARGE NURSE SOON RESTARTED IV 22 GAUGE IN RIGHT FOREARM.
[2019-07-06 16:00] VITALS: BP 130/66
--- NOTE | 2019-07-06 17:07 | NUR ---
Patient is alert and pleasant.States she resides at [facility] [phone]. She ambulates with a walker and requires min assist with adl's. States she has a boyfriend that resides at [facility] also. Her pcp is Dr. Aleman. Patient want to return to the [facility] when discharge. Addendum: 07/06/19 at 1707 by KALPANA BRYAN RN Amended: Links added.
--- NOTE | 2019-07-06 18:51 | NUR ---
RN CLOSING NOTES PATIENT IS RESTING IN BED, A/A/OX2-3, ON 3L O2 VIA NC WITH SPO2 OF 95%. NO SOB NO DISTRESS NOTED AT THIS TIME AND THROUGHOUT THE SHIFT, NO COMPLAINT OF PAIN. RIGHT FOREARM G22 IV LINE IS PATENT AND INTACT PATIENT REMOVED OTHER IV. HOB ELEVATED. ALL SAFETY MEASURES ARE IN PLACE, BED IS LOW AND LOCKED POSITION, CALL LIGHT IN REACH. WILL ENDORSE PATIENT CARE TO PM RN FOR CONT. OF CARE
--- NOTE | 2019-07-06 19:05 | NUR ---
MS RN OPENING NOTES RECEIVED PATIENT RESTING IN BED, ALERT, A/OX2, ABLE TO MAKE NEEDS KNOWN, HOWEVER CONFUSED AND TRIES TO GET OUT OF BED. REORIENTED PATIENT. PER REPORT PATIENT IS WEAK AND NEEDS ASSISTANCE WHEN GETTING UP TO USE BEDSIDE COMMODE. ON OXYGEN 2L VIA NC, NO SOB AND NO RESPIRATORY DISTRESS NOTED AT THIS TIME. DENIES ANY PAIN AT THE MOMENT. IV SITE RIGHT FOREARM G22 PATENT AND INTACT, S/L. HOB ELEVATED AT ALL TIMES. ALL SAFETY MEASURES ARE IN PLACE; BED IS LOW AND LOCKED POSITION, CALL LIGHT IN REACH, BED ALARM ON, SIDE RAILS UP X3. WILL CONT TO MONITOR PT CLOSELY.
[2019-07-06 20:00] VITALS: BP 120/44
[2019-07-06] MEDS: ENOXAPARIN SODIUM 40 MG/0.4 ML DISP.SYRIN SQ SCH (20:53)
[2019-07-06] MEDS: CEFTRIAXONE 1 G in IV D5W 50 ML IV SCH (21:45)
--- NOTE | 2019-07-07 03:18 | NUR ---
MS RN NOTES PATIENT PULLED OUT IV AND STATED "I REMOVED THE GLASS OUT OF MY ARM." REORIENTED PATIENT THAT SHE IS IN THE HOSPITAL AND SHE NEEDS AN IV SITE IN CASE OF EMERGENCY AND FOR HER IV ANTIBIOTICS. PATIENT AGREED TO PUT ANOTHER IV. NEW IV SITE RIGHT FA 22G AND COVERED WITH KERLIX. WILL CONT TO MONITOR PT.
[2019-07-07 04:00] VITALS: BP 138/64
[2019-07-07] MEDS: methylPREDNISolone SOD SUCC 40 MG/ML VIAL IV SCH ×2 (05:39→22:15)
[2019-07-07 06:00] VITALS: BP 138/64
--- NOTE | 2019-07-07 07:20 | NUR ---
MS RN CLOSING NOTES PATIENT IN BED, ALERT, A/OX2, ABLE TO MAKE NEEDS KNOWN, HOWEVER VERY CONFUSED AND TRIES TO GET OUT OF BED THROUGHOUT SHIFT, BED ALARM ON. REORIENTED PATIENT EVERY TIME. ON OXYGEN 2L VIA NC, NO SOB AND NO RESPIRATORY DISTRESS NOTED, SATURATION 95%. DENIES ANY PAIN AT THE MOMENT. IV SITE RIGHT FOREARM G22 PATENT AND INTACT, S/L AND COVERED. HOB ELEVATED AT ALL TIMES. ALL SAFETY MEASURES ARE IN PLACE; BED IS IN LOW AND LOCKED POSITION, CALL LIGHT IN REACH, BED ALARM ON, SIDE RAILS UP X3. ENDORSED TO AM RN FOR DEJA.
--- NOTE | 2019-07-07 07:20 | NUR ---
RN OPENING NOTES PT IS IN BED WITH NC OFF PER BIOLOGICS SPECIALIST PT REMOVES IT. PT IS STATING SHE NEEDS TO LEAVE AND DOES NOT KNOW WHERE SHE IS. PT IS DENYING PAIN AT PRESENT MOMENT. PT REMOVED IV. SITTER WOULD BE BENEFICIAL. REPORT RECEIVED FROM BIOLOGICS SPECIALIST RN WILL CONTINUE TO MONITOR.
[2019-07-07] MEDS: ALBUTEROL FS 2.5 MG/0.5 ML VIAL.NEB NEB SCH ×3 (07:35→19:18)
[2019-07-07] MEDS: IPRATROPIUM NEB FS 0.5 MG/2.5 ML AMPUL.NEB NEB SCH ×3 (07:35→19:18)
--- NOTE | 2019-07-07 07:58 | NUR ---
PT REFUSED AM RESP TX. STATED SHE JUST RECEIVED ONE AND DIDNT FEEL THE NEED FOR ANOTHER RESP TX ATT. WILL CONT TO MONITOR Addendum: 07/07/19 at 0800 by JARRETT RALPH RT Amended: Links added.
[2019-07-07 08:00] VITALS: BP 161/65
[2019-07-07] MEDS ORDERED: LORAZEPAM INJ 2 MG/ML VIAL IV PRN (08:30)
[2019-07-07] MEDS ORDERED: Z GUARD REMEDY 2 OZ OINT TP PRN (08:30)
--- NOTE | 2019-07-07 08:32 | NUR ---
WOUND CARE CONSULT: PT PRESENTS WITH RT PLANTAR FOOT CALLUS, RT BREASTFOLD RASH AND SACRAL SCAR, PRESENT ON ADMISSION. PT ABLE TO ASSIST WITH TURNING AND REPOSITIONING IN BED. RECOMMENDATIONS MADE FOR SKIN PROTECTION AND CARE. DISCUSSED WITH NURSING STAFF. WILL SEE PRN. VENCES IN AGREEMENT WITH PLAN OF CARE. Addendum: 07/07/19 at 0834 by DENISSE HOFF WNDNU Amended: Links added.
--- NOTE | 2019-07-07 08:45 | NUR ---
MD DAVIES AGREED TO ORDER SITTER, SITTER AT BEDSIDE.
[2019-07-07] MEDS: PANTOPRAZOLE 40 MG TABLET.DR PO SCH (09:56)
[2019-07-07] MEDS: GABAPENTIN 100 MG CAPSULE PO SCH ×3 (09:56→17:20)
[2019-07-07] MEDS: DIVALPROEX SODIUM 500 MG TABLET.DR PO SCH ×2 (09:56→17:20)
[2019-07-07] MEDS: BACLOFEN (10 MG) 10 MG TABLET PO SCH ×2 (09:56→17:20)
[2019-07-07] MEDS: DULOXETINE HCL 30 MG CAPSULE.DR PO SCH (09:56)
[2019-07-07] MEDS: NAPROXEN 250 MG TABLET PO SCH ×2 (09:56→17:20)
[2019-07-07] MEDS: clonazePAM 0.5 MG TABLET PO SCH ×2 (09:56→22:15)
[2019-07-07] MEDS: HYDROCODONE/APAP 5/325MG 1 EACH TABLET PO SCH ×2 (09:56→17:20)
[2019-07-07] MEDS: DOCUSATE SODIUM 100 MG CAPSULE PO SCH ×2 (09:57→17:20)
[2019-07-07] MEDS: Z GUARD REMEDY 2 OZ OINT TP SCH (09:59)
[2019-07-07] MEDS: AMLODIPINE BESYLATE 10 MG TABLET PO SCH (09:59)
[2019-07-07 16:00] VITALS: BP 129/78
--- NOTE | 2019-07-07 18:59 | NUR ---
RN CLOSING NOTES PT IS IN BED EATING CHOCOLATE ICE CREAM WITH SITTER AT BEDSIDE. PT IS CONFUSED A&OX2. SAFETY MEASURES IN CHECK. BED IS LOCKED AND IN LOWEST POSITION WITH CALL LIGHT IN REACH. HOB IS ELEVATED. NC ON 1L O2. WILL ENDORSE CONTINUITY OF CARE TO SENIOR MARKETING ASSOCIATE RN.
--- NOTE | 2019-07-07 20:00 | NUR ---
RN INITIAL NOTES PT IS IN BED IN BED, AOX2 WITH CONFUSION, 1:1 SITTER AT BEDSIDE FOR SAFETY ,PT IS STATING SHE NEEDS TO LEAVE AND DOES NOT KNOW WHERE SHE IS. PT IS DENYING PAIN AT THIS TIME. REPORT RECEIVED FROM AM SHIFT RN WILL CONTINUE TO MONITOR.
[2019-07-07] MEDS: CEFTRIAXONE 1 G in IV D5W 50 ML IV SCH (22:14)
[2019-07-07] MEDS: ENOXAPARIN SODIUM 40 MG/0.4 ML DISP.SYRIN SQ SCH ×2 (22:23→22:24)
[2019-07-08 00:20] VITALS: BP 129/78
[2019-07-08 06:29] LABS: BASOPHILS % (AUTO) 0.2 % (0.0-2.0); HEMATOCRIT 44 % (33-45); HEMOGLOBIN 14.9 g/dL (11.5-14.8); LYMPHOCYTES # (AUTO) 0.6 /CMM (0.8-4.8); LYMPHOCYTES % (AUTO) 10.5 % (20.0-44.0); MEAN CORPUSCULAR HGB CONC 34 g/dl (31.0-36.0); MEAN CORPUSCULAR VOLUME 99 fL (82-100); MONOCYTES # (AUTO) 0.2 /CMM (0.1-1.30); MONOCYTES % (AUTO) 4.2 % (2.0-12.0); NEUTROPHILS # (AUTO) 4.8 /CMM (1.8-8.9); NEUTROPHILS % (AUTO) 85.1 % (43.0-81.0); PLATELET COUNT (AUTO) 128 /CMM (150-450); RED BLOOD CELL COUNT(AUTO) 4.39 MIL/uL (4.0-5.2); WHITE BLOOD COUNT (AUTO) 5.6 K/uL (4.3-11.0)
--- NOTE | 2019-07-08 06:36 | NUR ---
RN CLOSING NOTES PT IS IN BED IN BED, AOX2 WITH CONFUSION, 1:1 SITTER AT BEDSIDE FOR SAFETY, APPEARS CLEAN AND DRY. PT IS DENYING PAIN AT THIS TIME. REPORT RECEIVED FROM AM SHIFT RN WILL CONTINUE TO MONITOR.
[2019-07-08 06:40] LABS: CALCIUM, SERUM 9.1 mg/dL (8.5-10.1); CARBON DIOXIDE 28 mmol/L (21-32); CHLORIDE 100 mmol/L (98-107); CREATININE 0.7 mg/dL (0.6-1.3); GLUCOSE 120 mg/dL (74-106); POTASSIUM 3.8 mmol/L (3.5-5.1); SODIUM SERUM 138 mmol/L (136-145); UREA NITROGEN, BLOOD 21 mg/dL (7-18)
[2019-07-08] MEDS: IPRATROPIUM NEB FS 0.5 MG/2.5 ML AMPUL.NEB NEB SCH ×3 (06:47→19:11)
[2019-07-08] MEDS: ALBUTEROL FS 2.5 MG/0.5 ML VIAL.NEB NEB SCH ×3 (06:47→19:11)
--- NOTE | 2019-07-08 07:25 | NUR ---
RN INITIAL NOTE PATIENT AWAKE AND ALERTX2. SITTER AT BEDSIDE. HAS RIGHT FA #22 SALINE LOCKED. PT EVAL PENDING. ON 2L NC. NO SOB NOTED. NO COMPLAINS OF ANY PAIN EITHER. BED LOCKED AND IN LOWEST POSITION. CALL LIGHT WITHIN REACH. WILL CONTINUE TO MONITOR
[2019-07-08 08:00] VITALS: BP 139/83
[2019-07-08] MEDS: GABAPENTIN 100 MG CAPSULE PO SCH ×3 (08:10→16:13)
[2019-07-08] MEDS: DOCUSATE SODIUM 100 MG CAPSULE PO SCH ×2 (08:10→16:13)
[2019-07-08] MEDS: HYDROCODONE/APAP 5/325MG 1 EACH TABLET PO SCH ×2 (08:10→16:13)
[2019-07-08] MEDS: clonazePAM 0.5 MG TABLET PO SCH ×2 (08:10→20:13)
[2019-07-08] MEDS: DULOXETINE HCL 30 MG CAPSULE.DR PO SCH (08:10)
[2019-07-08] MEDS: PANTOPRAZOLE 40 MG TABLET.DR PO SCH (08:10)
[2019-07-08] MEDS: NAPROXEN 250 MG TABLET PO SCH ×2 (08:11→16:13)
[2019-07-08] MEDS: BACLOFEN (10 MG) 10 MG TABLET PO SCH ×2 (08:11→16:13)
[2019-07-08] MEDS: DIVALPROEX SODIUM 500 MG TABLET.DR PO SCH ×2 (08:11→16:13)
[2019-07-08] MEDS: methylPREDNISolone SOD SUCC 40 MG/ML VIAL IV SCH ×2 (08:11→20:13)
[2019-07-08] MEDS: AMLODIPINE BESYLATE 10 MG TABLET PO SCH (08:12)
[2019-07-08] MEDS: Z GUARD REMEDY 2 OZ OINT TP SCH (08:17)
[2019-07-08 16:00] VITALS: BP 118/64
--- NOTE | 2019-07-08 18:48 | NUR ---
RN CLOSING NOTE PATIENT, AWAKE, SOMEWHAT CONFUSED. ON 2L NC, NO SOB NOTED. ALL MEDS GIVEN. HAS RIGHT FA #22, SALINE LOCKED. PT EVAL DONE YESTERDAY. NO COMPLAINS OF ANY PAIN NOR SOB. BED LOCKED AND IN LOWEST POSITION. CALL LIGHT WITHIN REACH. WILL ENDORSE TO NOC SHIFT FOR DEJA
[2019-07-08 20:00] VITALS: BP 101/55
--- NOTE | 2019-07-08 20:00 | NUR ---
MS RN NOTES RECEIVED PTS AWAKE ALERT AND RESPONSIVE WITH CONFUSION . WITH 1:1 sitter at bedside , pts is calm at this time sleeping and comfortable in bed all needs attended too call light within reach due meds given as ordered, v/s stable afebrile pts on nc at 2liters sating 96 %, no sob no distress noted breathing even and unlabored .will continue to monitor pts.
[2019-07-08] MEDS: CEFTRIAXONE 1 G in IV D5W 50 ML IV SCH (20:12)
[2019-07-09 04:00] VITALS: BP_SYST 101; BP_SYST 123; BP_DIAS 54; BP_DIAS 70
--- NOTE | 2019-07-09 07:06 | NUR ---
MS RN NOTES PTS REMAINS IN BED CALM AT THIS TIME , SLEPT WELL AT NIGHT , ALL NEEDS ATTENDED TOO CALL LIGHT WITHIN REACH , WITH 1:1 SITTER AT BEDSIDE , WILL ENDORSE TO RN DAY SHIFT FOR CONTINUITY OF CARE.
[2019-07-09] MEDS: ALBUTEROL FS 2.5 MG/0.5 ML VIAL.NEB NEB SCH ×2 (07:28→13:30)
[2019-07-09] MEDS: IPRATROPIUM NEB FS 0.5 MG/2.5 ML AMPUL.NEB NEB SCH ×2 (07:28→13:30)
[2019-07-09 08:00] VITALS: BP 131/67
--- NOTE | 2019-07-09 08:01 | NUR ---
MS RN NOTE PATIENT IN BED , ON 3L NC OD O2 ,NO SOB NOTED AT THIS TIME ,RESPIRATION EVEN, UNLABORED, PATIENT ALERT , WITH SOME CONFUSION, RT FA HL INTACT FLUSHED WELL ,NO S\SI INFECTION NOTED , , BED IN LOWEST AND LOCKED POSITING , CALL LIGHT WITHIN REACH , SAFETY MEASURE OBSERVED, WILL CONT TO MONITOR CLOSELY SITTER AT BEDSIDE AT THIS TIME, PLAN OF CARE DISCUSSED WITH PATENT
[2019-07-09] MEDS: GABAPENTIN 100 MG CAPSULE PO SCH ×3 (09:01→16:15)
[2019-07-09] MEDS: DOCUSATE SODIUM 100 MG CAPSULE PO SCH ×2 (09:01→16:15)
[2019-07-09] MEDS: DULOXETINE HCL 30 MG CAPSULE.DR PO SCH (09:01)
[2019-07-09] MEDS: BACLOFEN (10 MG) 10 MG TABLET PO SCH ×2 (09:01→16:15)
[2019-07-09] MEDS: NAPROXEN 250 MG TABLET PO SCH ×2 (09:01→16:15)
[2019-07-09] MEDS: clonazePAM 0.5 MG TABLET PO SCH (09:02)
[2019-07-09] MEDS: HYDROCODONE/APAP 5/325MG 1 EACH TABLET PO SCH ×2 (09:02→16:15)
[2019-07-09 09:04] VITALS: BP 131/67
[2019-07-09] MEDS: AMLODIPINE BESYLATE 10 MG TABLET PO SCH (09:04)
[2019-07-09] MEDS: DIVALPROEX SODIUM 500 MG TABLET.DR PO SCH ×2 (09:04→16:15)
[2019-07-09] MEDS: methylPREDNISolone SOD SUCC 40 MG/ML VIAL IV SCH (09:04)
[2019-07-09] MEDS: PANTOPRAZOLE 40 MG TABLET.DR PO SCH (09:04)
[2019-07-09] MEDS: Z GUARD REMEDY 2 OZ OINT TP SCH (09:06)
--- NOTE | 2019-07-09 10:00 | NUR ---
MS RN NOTE NEW HL ON LT FA INSERTED SARA 22 WITH GOOD BLOOD RETURN, PATIENT REMOVED OLD HL CATH
[2019-07-09] MEDS ORDERED: PANT40TA2 PO (11:24)
[2019-07-09] MEDS ORDERED: FLUT1DIS3 INH (11:24)
[2019-07-09] MEDS ORDERED: PRED50TA PO (11:24)
[2019-07-09] MEDS ORDERED: PRED20TA PO (11:24)
--- NOTE | 2019-07-09 12:16 | NUR ---
MS RN NOTE KEEP, CLEAN DRY, ALL NEEDS ATTENDED
--- NOTE | 2019-07-09 13:05 | NUR ---
MS RN NOTE PER MICHAEL HERNANDEZ DNP OK TO DISCHARGE PATIENT TO SNF , CALLED TO RAYMON DRUM TESTER, STATED THAT WILL F\U ,WILL AWAIT
--- NOTE | 2019-07-09 15:49 | NUR ---
T MS RN NOTE SPOKE WITH SNF RN REPORT GIVEN , ALSO SCRUM PRODUCT OWNER RAYMON SPOKE WITH DAUGHTER AYSHA AWARE THAT PATIENT IS GOING TO SNF
--- NOTE | 2019-07-09 16:48 | NUR ---
MS RN NOTES PER PT WANTED TO TRANSFER TO [facility]. REFUSED TO BE TRANSFER TO [facility]. OIL HOUSE ATTENDANT RAYMON NOTIFIED. WILL FOLLOW UP.
--- NOTE | 2019-07-09 17:52 | NUR ---
MS RN NOTE UNABLE TO GIVE REPORT TO SNF , NOBODY ANSWER PHONE WILL F\U
--- NOTE | 2019-07-09 18:39 | NUR ---
MS RN NOTES PT IS IN BED HAVING DINNER. SHE IS DRY COMFORTABLE. TURNED POSITION. UNLABORED BREATHING . NOT IN DISTRESS. CALL LIGHT IN REACH. BED AT LOWEST POSITION AND LOCKED.
--- NOTE | 2019-07-09 19:27 | NUR ---
MS RN NOTE SPOKE WITH JACLYN ROSS FROM [place] [facility] REPORT GIVEN ,ALSO AMBULANCE AT BEDSIDE ,TAKEN PATIENT , HL ON LT FA REMOVED ,NO BLEEDING NOTED ,WENT TO SNF WITH STABLE CONDITION , BELONGING SIGNED
== END 2019-07-09 19:27 | DRG 189 ==
LOC: ER 16:45 → TELE1 19:29 → MEDSG1 21:07
PROVIDERS: ADMIT Legal Medicine; ATTEND Legal Medicine
DX: J96.00 Acute respiratory failure, unspecified whether with hypoxia or hypercapnia (principal); G93.41 Metabolic encephalopathy; J44.1 Chronic obstructive pulmonary disease with (acute) exacerbation; I10 Essential (primary) hypertension; F03.90 Unspecified dementia, unspecified severity, without behavioral disturbance, psychotic disturbance, mood disturbance, and anxiety; F31.9 Bipolar disorder, unspecified; D69.6 Thrombocytopenia, unspecified; D72.819 Decreased white blood cell count, unspecified; G89.4 Chronic pain syndrome; F17.210 Nicotine dependence, cigarettes, uncomplicated
CPT/HCPCS: 36415; 70450-TC; 71045-TC; 72131-TC; 80048-TC; 83605-TC; 83735-TC; 84484-TC; 85025-TC; 85730-TC; 87040-TC; 87081-TC; 87086-TC; 94799-TC; 97116-TC; 97530-TC; G0378; J0696; J1650; J2270; J2405; J2920; J7040; J7050; J7060

== ENCOUNTER 2019-08-09 09:53 | Emergency (ER) | payer MEDICARE, OTHER ==
[~2019-08-09] VITALS: Ht 160 cm; Wt 73.5 kg
[~2019-08-09 09:53] MED LIST changes: +ATOR20TA PO; +FLUT1DIS3 INH; +PANT40TA2 PO; +PRED20TA PO; +PRED50TA PO
--- NOTE | 2019-08-09 09:57 | NUR ---
EMORY, FROM SNF, LETHARGIC, SLOW TO RESPOND S/P SMOKING WEED YESTERDAY AND TODAY BS 125, TO ER BED 11, HOOKED TO MONITOR, VSS, CHANGED TO GOWN, PROVIDED W WARM BLANKET, DR GILLIS AT BEDSIDE
[2019-08-09] MEDS ORDERED: LACT-179 PO (10:09)
[2019-08-09 10:18] LABS: BASOPHILS # (AUTO) 0.1 /CMM (0.0-0.2); BASOPHILS % (AUTO) 1.5 % (0.0-2.0); HEMATOCRIT 38 % (33-45); HEMOGLOBIN 12.8 g/dL (11.5-14.8); LYMPHOCYTES # (AUTO) 1.1 /CMM (0.8-4.8); LYMPHOCYTES % (AUTO) 29.6 % (20.0-44.0); MEAN CORPUSCULAR HGB CONC 34 g/dl (31.0-36.0); MEAN CORPUSCULAR VOLUME 101 fL (82-100); MONOCYTES # (AUTO) 0.4 /CMM (0.1-1.30); MONOCYTES % (AUTO) 10.7 % (2.0-12.0); NEUTROPHILS % (AUTO) 53.2 % (43.0-81.0); PLATELET COUNT (AUTO) 126 /CMM (150-450); WHITE BLOOD COUNT (AUTO) 3.8 K/uL (4.3-11.0)
[2019-08-09 10:24] LABS: APPEARANCE,URINE Clear (CLEAR); BILIRUBIN,URINE Negative (NEGATIVE); BLOOD, URINE Negative Ery/uL (NEGATIVE); COLOR,URINE Yellow (YELLOW); KETONES,URINE Negative (NEGATIVE); LEUKOCYTE ESTERASE ,URINE Negative (NEGATIVE); NITRITE, URINE Negative (NEGATIVE); PROTEIN,URINE Negative (NEGATIVE); UGLUCOSE Negative (NEGATIVE); UROBILINOGEN,URINE 0.2 EU/dL (0.2)
[2019-08-09] MEDS ORDERED: IV NS 0.9% 500 ML BAG IV ONE (10:30)
[2019-08-09 10:37] LABS: CALCIUM, SERUM 8.8 mg/dL (8.5-10.1); CARBON DIOXIDE 33 mmol/L (21-32); CHLORIDE 106 mmol/L (98-107); CREATININE 0.9 mg/dL (0.6-1.3); GLUCOSE 113 mg/dL (74-106); POTASSIUM 4.4 mmol/L (3.5-5.1); SODIUM SERUM 143 mmol/L (136-145); UREA NITROGEN, BLOOD 23 mg/dL (7-18)
--- NOTE | 2019-08-09 11:36 | NUR ---
PATIENT ASLEEP IN BED, EASILY AROUSABLE BY VOICE. HOOKED TO MONITOR. KEPT SAFE AND COMFORTABLE.
--- NOTE | 2019-08-09 13:26 | NUR ---
RT AT BEDSIDE FOR ABG
[2019-08-09 13:40] LABS: ABG BASE EXCESS 0.3 mmol/L; ABG OXYGEN SATURATION 85.9 % (92.0-98.5); ABG PCO2 44.1 mmHg (35.0-45.0); ABG PH 7.382 (7.350-7.450); ABG PO2 49.5 mmHg (75.0-100.0); AaDO2 47.4 mmHg; COHb 6.2 % (0.5-1.5); MetHb 0.1 % (0.0-1.5); O2Hb 80.5 % (94.0-97.0); SITE, ABG Right Brachial; VENT MODE, BG ROOM AIR
--- NOTE | 2019-08-09 14:52 | NUR ---
SPOKE TO BEATRIZ SOCIAL PSYCHOLOGIST OF [facility], UPDATED HOW PATIENT IS DOING. [phone] DR AGNES DONNELLY (PHOTOGRAPHIC EQUIPMENT TECHNICIAN)
--- NOTE | 2019-08-09 15:09 | NUR ---
[facility] ETA 2358 [facility] [id number]
--- NOTE | 2019-08-09 15:52 | NUR ---
SPOKE TO KAREN PALAFOXWELDER MACHINE OPERATORLYNN AT [facility].
--- NOTE | 2019-08-09 16:00 | NUR ---
Patient picked-up by [facility] UNIT 120 in stable condition, patient will be brought back to [facility] at the [facility]. Written and verbal after care instructions given. Patient verbalizes understanding of instruction.
[2019-08-09 16:04] VITALS: BP 144/71
== END 2019-08-09 16:05 ==
LOC: ER 09:59
DX: F12.929 Cannabis use, unspecified with intoxication, unspecified (principal); I10 Essential (primary) hypertension; G89.29 Other chronic pain; Z86.73 Personal history of transient ischemic attack (TIA), and cerebral infarction without residual deficits; Z88.0 Allergy status to penicillin; Z79.899 Other long term (current) drug therapy
CPT/HCPCS: 36415; 36600; 80048; 81001; 83605; 84484; 85025; 99284; J7040; 81000-TC

== ENCOUNTER 2019-10-01 15:24 | Emergency (ER) | payer MEDICARE ==
[~2019-10-01] VITALS: Ht 167.6 cm; Wt 68.5 kg
[~2019-10-01 15:24] MED LIST changes: -ATOR20TA PO; -DONE10TA44 PO; -FLUT1DIS3 INH; -HYDR-4384 PO; +LACT-179 PO; -OXYB5TAB11 PO; -PRED20TA PO; -PRED50TA PO
--- NOTE | 2019-10-01 15:32 | NUR ---
MICHELLE FROM [facility] C/O R HIP AN R SHOULDER PAIN S/P GLF, -KO, TO ER BED 3, HOOKED TO MONITOR, CHANGED TO HOSP GOWN, AWAITING MD LOWERY.
--- NOTE | 2019-10-01 15:33 | NUR ---
DR ÁLVAREZ AT BEDSIDE
[2019-10-01] MEDS ORDERED: PANT40TA2 PO (15:38)
[2019-10-01] MEDS ORDERED: VARE1TAB21 PO (15:38)
[2019-10-01] MEDS ORDERED: HYDROCODONE/APAP 5/325MG 1 EACH TABLET ONE (15:40)
[2019-10-01 15:43] LABS: EOSINOPHILS % (AUTO) 4.6 % (0.0-6.0); HEMATOCRIT 40 % (33-45); HEMOGLOBIN 13.4 g/dL (11.5-14.8); LYMPHOCYTES # (AUTO) 0.9 /CMM (0.8-4.8); LYMPHOCYTES % (AUTO) 18.4 % (20.0-44.0); MEAN CORPUSCULAR HGB CONC 34 g/dl (31.0-36.0); MEAN CORPUSCULAR VOLUME 101 fL (82-100); MONOCYTES # (AUTO) 0.5 /CMM (0.1-1.30); MONOCYTES % (AUTO) 10.2 % (2.0-12.0); NEUTROPHILS # (AUTO) 3.1 /CMM (1.8-8.9); NEUTROPHILS % (AUTO) 65.8 % (43.0-81.0); PLATELET COUNT (AUTO) 128 /CMM (150-450); RED BLOOD CELL COUNT(AUTO) 3.93 MIL/uL (4.0-5.2); WHITE BLOOD COUNT (AUTO) 4.7 K/uL (4.3-11.0)
[2019-10-01 15:54] LABS: CARBON DIOXIDE 31 mmol/L (21-32); CHLORIDE 106 mmol/L (98-107); CREATININE 0.8 mg/dL (0.6-1.3); GLUCOSE 104 mg/dL (74-106); POTASSIUM 4.2 mmol/L (3.5-5.1); SODIUM SERUM 140 mmol/L (136-145); UREA NITROGEN, BLOOD 24 mg/dL (7-18)
[2019-10-01 16:00] LABS: ALANINE AMINOTRANSFERASE 13 U/L (12-78); ALBUMIN 3.5 g/dL (3.4-5.0); ALKALINE PHOSPHATASE 59 U/L (46-116); ASPARTATE AMINOTRANSFERASE 14 U/L (15-37); BILIRUBIN,DIRECT 0.1 mg/dL (0.0-0.2); BILIRUBIN,TOTAL 0.4 mg/dL (0.2-1.0); TOTAL PROTEIN, SERUM 6.6 g/dL (6.4-8.2)
[2019-10-01] MEDS ORDERED: HYDROCODONE/APAP 5/325MG 1 EACH TABLET PO ONE (16:00)
--- NOTE | 2019-10-01 17:15 | NUR ---
[facility] ETA 1900.
--- NOTE | 2019-10-01 17:46 | NUR ---
REPORT GIVEN TO BERTO FROM [facility].
--- NOTE | 2019-10-01 19:19 | NUR ---
Patient picked up by SANJEEV Hernandez in stable condition going back to [facility]. Written and verbal after care instructions given. Patient verbalizes understanding of instruction.
[2019-10-01 19:24] VITALS: BP 108/74
== END 2019-10-01 19:24 ==
LOC: ER 15:27
DX: M25.511 Pain in right shoulder (principal); M25.551 Pain in right hip; R51 Headache; I10 Essential (primary) hypertension; J44.9 Chronic obstructive pulmonary disease, unspecified; F17.200 Nicotine dependence, unspecified, uncomplicated; M54.9 Dorsalgia, unspecified; G89.29 Other chronic pain; Z86.73 Personal history of transient ischemic attack (TIA), and cerebral infarction without residual deficits; Z88.0 Allergy status to penicillin; Z79.899 Other long term (current) drug therapy; W01.0XXA Fall on same level from slipping, tripping and stumbling without subsequent striking against object, initial encounter; Y93.89 Activity, other specified; Y92.89 Other specified places as the place of occurrence of the external cause; Y99.8 Other external cause status
CPT/HCPCS: 36415; 70450-TC; 72125-TC; 73030-TC; 73502; 80048-TC; 80076-TC; 84484-TC; 85025-TC

== ENCOUNTER 2023-02-06 14:56 | Emergency (ER) | payer MEDICARE, OTHER ==
[~2023-02-06] VITALS: Ht 165.1 cm; Wt 75.7 kg
[~2023-02-06 14:56] MED LIST changes: +AMLO-213 PO; -AMLO10TA7 PO; -CLON0.5T12 PO; +CLON0.5T4 PO; -LACT-179 PO; +NAPR-1196 PO; -NAPR250T4 PO; +VARE1TAB21 PO
--- NOTE | 2023-02-06 14:56 | NUR ---
BIBA FOR GLF. POOR HISTORIAN. TOLERATING WELL ON ROOM AIR.
--- NOTE | 2023-02-06 17:16 | NUR ---
Patient placed in right upper extremity restraint due to confusion and attempt to get out of bed. CMS intact distally. Will continue to monitor.
--- NOTE | 2023-02-06 17:44 | NUR ---
CALLED [facility] FOR TRANSPORT ETA 1829
--- NOTE | 2023-02-06 18:20 | NUR ---
Patient discharged from hospital accompanied by 2 break off worker. Patient stable at time of discharge.
[2023-02-06 18:21] VITALS: BP 130/60
== END 2023-02-06 18:22 ==
LOC: ER 15:06
DX: S09.90XA Unspecified injury of head, initial encounter (principal); I10 Essential (primary) hypertension; G89.29 Other chronic pain; Z88.0 Allergy status to penicillin; Z79.899 Other long term (current) drug therapy; W01.0XXA Fall on same level from slipping, tripping and stumbling without subsequent striking against object, initial encounter; Y93.89 Activity, other specified; Y92.89 Other specified places as the place of occurrence of the external cause; Y99.8 Other external cause status
CPT/HCPCS: 70450-TC; 72125-TC